=== PATIENT | female | born 1955 | race Caucasian/White ===

== ENCOUNTER → 2016-12-22 | Outpatient (CLI) | payer OTHER ==
[2015-09-10 11:23] VITALS: BP 109/68
[~2016-12-22] MED LIST: HYDR-2678 PO; ONDA4TAB7 PO; TRAM50TA PO
--- NOTE | 2016-12-22 12:13 | RAD ---
Exam performed: 2 views of the chest. Indication: COUGH. HOARSENESS. Date of Service:12/22/2016 2:00 AM . Comparison : 1 view chest from 12/24/09. Findings: PA and lateral radiographs of the chest reveal a normal cardiomediastinal contour. The lungs are clear. No pleural fluid is seen. The visualized osseous structures are unremarkable. Impression: Radiographically normal chest.
== END | disposition home or self-care (01) ==
LOC: RAD 11:00
PROVIDERS: ATTEND Physician Assistant
DX: R05 Cough (principal); R49.0 Dysphonia
CPT/HCPCS: 71020

== ENCOUNTER 2018-10-08 06:14 | Emergency (ER) | payer BC, OTHER ==
[~2018-10-08] VITALS: Ht 167.6 cm; Wt 63.0 kg
--- NOTE | 2018-10-08 06:38 | PHYS DOC ---
Adult General Chief Complaint Chief Complaint: HEADACHE HPI HPI Patient is a 63 year old female who presents with complaining of headache. Patient states she hit her head against a metal bar 5 days ago while working at her garden with loss of consciousness about 10-20 seconds and since then has had nausea, headache, confusion, generalized weakness and body. Patient states she had a near syncopal episode this morning when she got out of the.. Patient denies focal neuro deficit, fever and chills, vomiting, chest pain, shortness of breath. Patient states she had history of migraine headaches and didn't have episodes of headache for a while and this episodes of headache was different from her migraine headache. Review of Systems Review of Systems Constitutional: Denies fever or chills [] Eyes: Denies change in visual acuity, redness, or eye pain [] HENT: Denies nasal congestion or sore throat [] Respiratory: Denies cough or shortness of breath [] Cardiovascular: No additional information not addressed in HPI [] GI: Denies abdominal pain, vomiting, bloody stools or diarrhea, reports nausea [] : Denies dysuria or hematuria [] Musculoskeletal: Denies back pain or joint pain [] Integument: Denies rash or skin lesions [] Neurologic: Reports headache and generalized weakness, denies focal weakness or sensory changes [] Endocrine: Denies polyuria or polydipsia [] All other systems were reviewed and found to be within normal limits, except as documented in this note. Current Medications Current Medications Current Medications Medications (Trade) Dose Ordered Sig/Anthony Start Time Stop Time Status Last Admin Dose Admin Ketorolac Tromethamine (Toradol 30mg Vial) 30 mg 1X ONCE 10/08/18 06:45 10/08/18 06:46 DC 10/08/18 06:50 30 MG Morphine Sulfate (Morphine Sulfate) 2 mg 1X ONCE 10/08/18 07:45 10/08/18 07:46 DC 10/08/18 07:53 2 MG Ondansetron HCl (Zofran) 4 mg 1X ONCE 10/08/18 06:45 10/08/18 06:46 DC 10/08/18 06:49 4 MG Sodium Chloride 1,000 ml @ 1,000 mls/hr 1X ONCE 10/08/18 06:45 10/08/18 07:44 DC 10/08/18 06:50 1,000 MLS/HR Allergies Allergies Allergies Coded Allergies Type Severity Reaction Last Updated Verified azithromycin Adverse Reaction Intermediate Nausea and Vomiting 09/10/15 Yes ciprofloxacin Adverse Reaction Intermediate Diarrhea 09/10/15 Yes hydromorphone Adverse Reaction Intermediate Nausea and Vomiting 09/10/15 Yes Physical Exam Physical Exam Constitutional: Well developed, well nourished, mild distress, non-toxic appearance. [] HENT: Normocephalic, atraumatic, bilateral external ears normal, oropharynx moist, no oral exudates, nose normal. [] Eyes: PERRLA, EOMI, conjunctiva normal, no discharge. [] Neck: Normal range of motion, no tenderness, supple, no stridor. [] Cardiovascular:Heart rate regular rhythm, no murmur [] Lungs & Thorax: Bilateral breath sounds clear to auscultation [] Abdomen: Bowel sounds normal, soft, no tenderness, no masses, no pulsatile masses. [] Skin: Warm, dry, no erythema, no rash. [] Back: No tenderness, no CVA tenderness. [] Extremities: No tenderness, no cyanosis, no clubbing, ROM intact, no edema. [] Neurologic: Alert and oriented X 3, normal motor function, normal sensory function, no focal deficits noted. [] Psychologic: Affect normal, judgement normal, mood normal. [] Current Patient Data Vital Signs Vital Signs Date Time Temp Pulse Resp B/P (MAP) Pulse Ox O2 Delivery O2 Flow Rate FiO2 10/08/18 08:00 62 15 98 10/08/18 06:30 98.2 128/76 (93) Room Air 98.2 Lab Values Laboratory Tests Test 10/08/18 06:37 White Blood Count 4.9 x10^3/uL (4.0-11.0) Red Blood Count 4.27 x10^6/uL (3.50-5.40) Hemoglobin 13.6 g/dL (12.0-15.5) Hematocrit 39.3 % (36.0-47.0) Mean Corpuscular Volume 92 fL (79-100) Mean Corpuscular Hemoglobin 32 pg (25-35) Mean Corpuscular Hemoglobin Concent 35 g/dL (31-37) Red Cell Distribution Width 12.8 % (11.5-14.5) Platelet Count 230 x10^3/uL (140-400) Neutrophils (%) (Auto) 59 % (31-73) Lymphocytes (%) (Auto) 32 % (24-48) Monocytes (%) (Auto) 6 % (0-9) Eosinophils (%) (Auto) 2 % (0-3) Basophils (%) (Auto) 1 % (0-3) Neutrophils # (Auto) 2.9 x10^3uL (1.8-7.7) Lymphocytes # (Auto) 1.6 x10^3/uL (1.0-4.8) Monocytes # (Auto) 0.3 x10^3/uL (0.0-1.1) Eosinophils # (Auto) 0.1 x10^3/uL (0.0-0.7) Basophils # (Auto) 0.0 x10^3/uL (0.0-0.2) Sodium Level 143 mmol/L (136-145) Potassium Level 4.2 mmol/L (3.5-5.1) Chloride Level 107 mmol/L (98-107) Carbon Dioxide Level 28 mmol/L (21-32) Anion Gap 8 (6-14) Blood Urea Nitrogen 20 mg/dL (7-20) Creatinine 0.9 mg/dL (0.6-1.0) Estimated GFR (Cockcroft-Gault) 63.4 BUN/Creatinine Ratio 22 (6-20) H Glucose Level 122 mg/dL (70-99) H Calcium Level 9.3 mg/dL (8.5-10.1) Magnesium Level 1.9 mg/dL (1.8-2.4) Total Bilirubin 0.5 mg/dL (0.2-1.0) Aspartate Amino Transferase (AST) 18 U/L (15-37) Alanine Aminotransferase (ALT) 22 U/L (14-59) Alkaline Phosphatase 60 U/L (46-116) Creatine Kinase 69 U/L (26-192) Troponin I Quantitative < 0.017 ng/mL (0.000-0.055) Total Protein 6.5 g/dL (6.4-8.2) Albumin 2.1 g/dL (3.4-5.0) L Albumin/Globulin Ratio 0.5 (1.0-1.7) L Laboratory Tests 10/08/18 06:37 Laboratory Tests 10/08/18 06:37 EKG EKG EKG interpreted by me. EKG at 0640 showed normal sinus rhythm at rate of 74, no acute ST and T-wave abnormalities Radiology/Procedures Radiology/Procedures [facility] [address] [place] [address] IMAGING REPORT Signed PATIENT: HUNTER MASON ACCOUNT: [id number] : 1955 LOCATION: ER AGE: 63 SEX: F EXAM STATUS: REG ER ORD. PHYSICIAN: SARA MEAD MD REASON: top of head head injury 10/03/2018, nombeness/weakness legs and arms PROCEDURE: CT HEAD AND CERVICAL SPINE WO CT head without contrast. CT cervical spine without contrast. PQRS statement: CT scans at this facility use dose reduction including either automated exposure control, iterative reconstructions, and /or weight based radiation dosing via mA and kV modification when appropriate to reduce radiation dose to as low as reasonably achievable. HISTORY: Head injury at the vertex, numbness and weakness of the legs and orbits. TECHNIQUE: Noncontrast CT imaging of the head and cervical spine multiplanar reconstructions was acquired. CT head findings: No intracranial hemorrhage, mass, hydrocephalus, extra-axial fluid collections or infarction. No acute ischemic change. Imaged orbits, mastoids, paranasal sinuses and bones are unremarkable. IMPRESSION: No acute intracranial CT abnormality. CT cervical spine findings: Craniocervical junction intact. Cervical vertebral body height and alignment intact. No fracture of the cervical spine. Lung apices and paraspinal tissues are unremarkable. Cervical disc height loss, disc osteophytes and uncovertebral spurs with spinal canal and neural foraminal stenoses at C5-C6 and C6-C7. IMPRESSION: No acute osseous injury of the cervical spine. Cervical disc disease as described above. Electronically signed by: Rai Duong MD (10/08/2018 7:21 AM) [facility] DICTATED and SIGNED BY: RAI DUONG MD DATE: 10/08/18 0721 Course & Med Decision Making Course & Med Decision Making Pertinent Labs and Imaging studies reviewed. (See chart for details) Evaluation of patient in ER showed 63-year-old female patient with head injury and shortness loss of consciousness and complaining of generalized weakness and headache and nausea for 5 days. Patient had unremarkable physical exam and labs and CT head and neck and EKG and felt significantly treatment in ER. Patient was advised to follow up with concussion clinic at [facility] and increase fluid intake. Dragon Disclaimer Dragon Disclaimer This electronic medical record was generated, in whole or in part, using a voice recognition dictation system. Departure Departure Impression: Primary Impression: Concussion Additional Impressions: Myalgia Nausea Degenerative cervical spinal stenosis Disposition: HOME, SELF-CARE (at 0811) Condition: IMPROVED Referrals: ARIANA LEWIS MD (PCP) Patient Instructions: Concussion and Brain Injury, Myalgia, Adult, Nausea, Adult Additional Instructions: Drink plenty of liquids Follow-up with your primary care physician in 3-5 days Return to ER if not getting better Follow-up with concussion management Center at call [phone] to make an appointment in 2 or 3 days Scripts Ondansetron Hcl (ZOFRAN) 4 Mg Tablet 1 TAB PO PRN Q6-8HRS for nausea, #12 TAB Prov: SARA MEAD MD 10/08/18 Tramadol Hcl (ULTRAM) 50 Mg Tablet 50 MG PO Q6HRS PRN for PAIN, #14 TAB 0 Refills Prov: SARA MEAD MD 10/08/18 Problem Qualifiers Primary Impression: Concussion Encounter type: initial encounter Loss of consciousness presence/duration: with LOC of 30 min or less Qualified Codes: S06.0X1A - Concussion with loss of consciousness of 30 minutes or less, initial encounter SARA MEAD MD Oct 08, 2018 06:38
[2018-10-08] MEDS ORDERED: IV NORMAL SALINE 1000ML BAG 1,000 ML IV ONE (06:45)
[2018-10-08] MEDS ORDERED: KETOROLAC 30 MG/ML VIAL. IV ONE (06:45)
[2018-10-08] MEDS ORDERED: ONDANSETRON PF 4 MG/2 ML VIAL. IV ONE (06:45)
[2018-10-08 06:56] LABS: BASO % 1 % (0-3); EOS # 0.1 x10^3/uL (0.0-0.7); EOS % 2 % (0-3); HEMATOCRIT 39.3 % (36.0-47.0); HEMOGLOBIN 13.6 g/dL (12.0-15.5); LYMPH # 1.6 x10^3/uL (1.0-4.8); LYMPH % 32 % (24-48); MEAN CORPUSCULAR HEMOGLOBIN 32 pg (25-35); MEAN CORPUSCULAR HGB CONC 35 g/dL (31-37); MEAN CORPUSCULAR VOLUME 92 fL (79-100); MONO # 0.3 x10^3/uL (0.0-1.1); MONO % 6 % (0-9); NEUT # 2.9 x10^3uL (1.8-7.7); NEUT % 59 % (31-73); PLATELET COUNT 230 x10^3/uL (140-400); RED BLOOD COUNT 4.27 x10^6/uL (3.50-5.40); RED CELL DISTRIBUTION WIDTH 12.8 % (11.5-14.5); WHITE BLOOD COUNT 4.9 x10^3/uL (4.0-11.0)
[2018-10-08 07:04] LABS: CALCIUM 9.3 mg/dL (8.5-10.1); CREATININE 0.9 mg/dL (0.6-1.0); GFR 63.4; POTASSIUM 4.2 mmol/L (3.5-5.1)
[2018-10-08 07:10] LABS: MAGNESIUM 1.9 mg/dL (1.8-2.4); TOTAL BILIRUBIN 0.5 mg/dL (0.2-1.0); TOTAL PROTEIN 6.5 g/dL (6.4-8.2)
[2018-10-08 07:19] LABS: ALBUMIN 2.1 g/dL (3.4-5.0); ALBUMIN/GLOBULIN RATIO 0.5 (1.0-1.7)
--- NOTE | 2018-10-08 07:24 | RAD ---
CT head without contrast. CT cervical spine without contrast. PQRS statement: CT scans at this facility use dose reduction including either automated exposure control, iterative reconstructions, and /or weight based radiation dosing via mA and kV modification when appropriate to reduce radiation dose to as low as reasonably achievable. HISTORY: Head injury at the vertex, numbness and weakness of the legs and orbits. TECHNIQUE: Noncontrast CT imaging of the head and cervical spine multiplanar reconstructions was acquired. CT head findings: No intracranial hemorrhage, mass, hydrocephalus, extra-axial fluid collections or infarction. No acute ischemic change. Imaged orbits, mastoids, paranasal sinuses and bones are unremarkable. IMPRESSION: No acute intracranial CT abnormality. CT cervical spine findings: Craniocervical junction intact. Cervical vertebral body height and alignment intact. No fracture of the cervical spine. Lung apices and paraspinal tissues are unremarkable. Cervical disc height loss, disc osteophytes and uncovertebral spurs with spinal canal and neural foraminal stenoses at C5-C6 and C6-C7. IMPRESSION: No acute osseous injury of the cervical spine. Cervical disc disease as described above. Electronically signed by: Gerald Duong MD (10/08/2018 7:21 AM) [facility]
[2018-10-08] MEDS ORDERED: MORPHINE SULFATE 2 MG/ML VIAL. IV ONE (07:45)
[2018-10-08 08:00] VITALS: BP 114/71
[2018-10-08] MEDS ORDERED: TRAM-48 PO (08:17)
[2018-10-08] MEDS ORDERED: ONDA4TAB7 PO (08:17)
--- NOTE | 2018-10-08 10:34 | EKG ---
[facility] [address] [place] [address] Test Date: 2018-10-08 Test Time: 06:40:50 Pat Name: HUNTER MASON Department: Room: Gender: F [employer] Display: : 1955 Requested By: SARA MEAD Order Number: [id number] Reading MD: Measurements Intervals [place] Rate: 73 P: 57 HI: 142 QRS: 58 QRSD: 86 T: 49 QT: 388 QTc: 431 Interpretive Statements SINUS RHYTHM NORMAL ECG No previous ECG available for comparison
--- NOTE | 2018-10-14 11:34 | NUR ---
Late entry made to Medical Record. IV Stop time transcribed from eMAR to IV spreadsheet
== END 2018-10-08 09:04 | disposition home or self-care (01) ==
LOC: ER 06:14
DX: S06.0X1A Concussion with loss of consciousness of 30 minutes or less, initial encounter (principal); M48.02 Spinal stenosis, cervical region; M79.18 Myalgia, other site; R11.0 Nausea; R53.1 Weakness; R55 Syncope and collapse; R41.0 Disorientation, unspecified; G43.909 Migraine, unspecified, not intractable, without status migrainosus; Z88.1 Allergy status to other antibiotic agents; Z88.5 Allergy status to narcotic agent
CPT/HCPCS: 36415; 70450; 72125; 80053; 82550; 83735; 84484; 85025; 93005; 96361; 96374; 96375; 99285; J1885; J2270; J2405; J7030

== ENCOUNTER → 2018-12-08 | Day surgery (SDC) | payer BC ==
[~2018-12-08] MED LIST changes: +IV RINGERS,LACTATED 1000ML 1,000 ML IV SCH; +PROPOFOL 20 ML IV ONE; +TRAM-48 PO
[2018-12-08 09:09] VITALS: BP 96/60
--- NOTE | 2018-12-08 17:56 | CONS ---
DATE OF CONSULTATION: 12/08/2018 GI CONSULTATION REASON: Colorectal screening. REFERRING: Armand Rowland PA-C HISTORY OF PRESENT ILLNESS: A 63-year-old female with past medical history significant for cholecystectomy and hysterectomy, is seen for colonoscopy. Bowel habits are regular without diarrhea or constipation. There has been no melena and/or hematochezia. Weight and appetite are stable. She is otherwise without additional complaints. PAST MEDICAL HISTORY: Status post cholecystectomy, hysterectomy and tonsillectomy. ALLERGIES: AZITHROMYCIN, CIPROFLOXACIN, HYDROMORPHONE. MEDICATIONS: Include Zofran. SOCIAL HISTORY: Nonsmoker, nondrinker. 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 FAMILY HISTORY: Significant for diabetes with her father and a sister. REVIEW OF SYSTEMS: HEENT: There are no decreased hearing or visual acuity issues. NEUROLOGIC: No stroke, migraine, neuropathy. PSYCHIATRIC: No mood swings, depression, insomnia. CARDIOLOGY: No hypertension, palpitations,or syncope. PULMONARY: No shortness breath, productive cough, or asthma. RENAL: No dysuria, frequency, hematuria. DERMATOLOGIC: No skin rashes or pruritus. GASTROINTESTINAL: See history of present illness. HEMATOLOGIC: No bleeding, bruising, coagulopathy. MUSCULOSKELETAL: No osteoarthrosis, arthralgias, myalgias. PHYSICAL EXAMINATION: GENERAL: Reveals a well-nourished, well-developed female. VITAL SIGNS: Temperature is 97, pulse 82, respiratory rate is 18. HEENT: Normocephalic, atraumatic head. Pupils and extraocular muscles are not tested. Sclerae anicteric. NECK: Supple. LUNGS: Clear. CARDIOVASCULAR: Reveals an S1, S2, without S3, S4 or appreciable murmur. ABDOMEN: Reveals soft abdomen, normoactive bowel sounds, without appreciable hepatosplenomegaly. EXTREMITIES: Reveals no cyanosis, clubbing or edema. IMPRESSION: Colorectal screening is warranted at this time. Risks and benefits have been discussed with the patient including risk of hemorrhage and perforation requiring operation. The patient is willing to proceed. I would like to thank Armand Rowland for allowing us to consult and participate in this patient's care. MARTA TOPETE MD DR: BLAKE/ryan JOB#: [id number] / [id number] MARTA Ricardo MD, JEFFREY PA-C
== END ==
LOC: ENDOS 06:51
PROVIDERS: ATTEND Internal Medicine Gastroenterology
DX: Z12.11 Encounter for screening for malignant neoplasm of colon (principal); K64.0 First degree hemorrhoids; K63.89 Other specified diseases of intestine; Z90.49 Acquired absence of other specified parts of digestive tract; Z98.890 Other specified postprocedural states; Z90.710 Acquired absence of both cervix and uterus; Z88.6 Allergy status to analgesic agent; Z88.1 Allergy status to other antibiotic agents; Z88.8 Allergy status to other drugs, medicaments and biological substances
CPT/HCPCS: 45378; J2704